=== PATIENT | male | born 1975 | race Caucasian/White ===

== ENCOUNTER 2016-04-21 19:27 | Inpatient (IN) | payer MEDICAID, OTHER ==
[~2016-04-21] VITALS: Ht 177.8 cm; Wt 86.9 kg
[~2016-04-21 19:27] MED LIST: IBUP800T23 PO; SULF1TAB47 PO
[2016-04-21] MEDS ORDERED: SODIUM CHLOR 0.9% 1000 ML INJ 1,000 ML IV SCH (19:32)
[2016-04-21 19:33] VITALS: BP 132/69; PULSE 89; RESP 24; TEMP 97.7; O2SAT 97
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
[2016-04-21 19:40] VITALS: PULSE 88; RESP 24; O2SAT 100
[2016-04-21 19:45] VITALS: BP 112/75; PULSE 84; RESP 28; O2SAT 100
[2016-04-21] MEDS ORDERED: MORPHINE SULFATE 8 MG/ML INJ IV PUSH ONE (19:45)
[2016-04-21] MEDS ORDERED: SODIUM CHLORIDE 0.9% FLUSH 5 ML FLUSH IVF PRN ×2 (19:45→20:30)
[2016-04-21] MEDS ORDERED: ONDANSETRON HCL 4 MG/2 ML VIAL IVP ONE (19:45)
[2016-04-21] MEDS ORDERED: SODIUM CHLOR 0.9% 250 ML INJ 250 ML IV ONE (20:00)
[2016-04-21 20:12] LABS: AUTOMATED NEUTROPHIL # 24.9 TH/MM3 (1.8-7.7); BASOPHIL % 0.1 % (0.0-2.0); EOSINOPHIL % 0.1 % (0.0-4.0); HEMATOCRIT 45.6 % (39.0-51.0); HEMO FLAGS DIFF FINAL; LYMPH % 4.2 % (9.0-44.0); LYMPHOCYTE # 1.2 TH/MM3 (1.0-4.8); MEAN CORPUSCULAR HEMOGLOBIN 31.2 PG (27.0-34.0); MEAN CORPUSCULAR HGB CONC 34.3 % (32.0-36.0); MONO % 4.6 % (0.0-8.0); PLATELET COUNT 192 TH/MM3 (150-450); RED BLOOD COUNT 5.02 MIL/MM3 (4.50-5.90); RED CELL DISTRIBUTION WIDTH 12.6 % (11.6-17.2); WHITE BLOOD COUNT 27.3 TH/MM3 (4.0-11.0)
[2016-04-21 20:22] VITALS: BP 121/85; PULSE 88; RESP 18; O2SAT 100
[2016-04-21 20:26] LABS: BLOOD, URINE MOD (NEG); COMMENT (UR) CULT NOT INDICATED; CULTURE IF INDICATED CULT NOT INDICATED; GLUCOSE,URINE NEG (NEG); KETONE, URINE TRACE mg/dL (NEG); MUCUS URINE FEW /lpf (OCC); NITRITE,URINE NEG (NEG); PH, URINE 5.5 (5.0-8.5); SQUAMOUS EPITHELIAL CELL URINE <1 /hpf (0-5); URINE COLOR YELLOW (YELLW/STRAW)
[2016-04-21] MEDS ORDERED: CHLORHEXIDINE GLUCONATE 2 % 1 PACK (2 CLOTHS) TOP PRN (20:30)
[2016-04-21] MEDS ORDERED: MORPHINE SULFATE 4 MG/ML INJ IV PUSH PRN (20:30)
[2016-04-21] MEDS ORDERED: ONDANSETRON HCL 4 MG/2 ML VIAL IV PRN (20:30)
[2016-04-21] MEDS ORDERED: ACETAMINOPHEN/HYDROcodone 325 MG/5 MG TAB PO PRN ×2 (20:30)
[2016-04-21] MEDS ORDERED: MISCELLANEOUS NURSING INFORMATION XX SCH (20:30)
[2016-04-21 20:39] LABS: APTT (PATIENT) 23.6 SEC (24.3-30.1); INTERNATIONAL NORMALIZED RATIO 1.1 RATIO; PROTHROMBIN TIME - PATIENT 11.7 SEC (9.8-11.6)
[2016-04-21 20:48] LABS: BICARBONATE 25.4 MEQ/L (21.0-32.0); TOTAL BILIRUBIN ADULT 1.3 MG/DL (0.2-1.0)
[2016-04-21 20:49] LABS: POTASSIUM 3.8 MEQ/L (3.5-5.1)
[2016-04-21 20:51] VITALS: BP 125/57; PULSE 86; RESP 16; O2SAT 100
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
[2016-04-21] MEDS: SODIUM CHLOR 0.9% 1000 ML INJ 1,000 ML IV SCH (21:50)
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
[2016-04-21] MEDS: PANTOPRAZOLE SODIUM 40 MG VIAL IVP SCH (22:03)
[2016-04-21 23:37] VITALS: O2SAT 96
[2016-04-21] MEDS: HYDROmorphone HCL PF 1 MG/ML VIAL IVP PRN (23:54)
[2016-04-22] VITALS (10 sets, daily range): BP systolic 103–126; BP diastolic 55–88; PULSE 82–97; RESP 12–22; TEMP 98.2–98.9; O2SAT 92–98
[2016-04-22] MEDS: MORPHINE SULFATE 4 MG/ML INJ IV PUSH PRN ×5 (01:44→18:56)
[2016-04-22 01:53] LABS: HEMATOCRIT 37.1 % (39.0-51.0); REVIEW FLAG FINAL
[2016-04-22] MEDS: HYDROmorphone HCL PF 1 MG/ML VIAL IVP PRN ×4 (03:39→21:31)
[2016-04-22] MEDS: SODIUM CHLOR 0.9% 1000 ML INJ 1,000 ML IV SCH ×4 (03:48→20:47)
[2016-04-22] MEDS: CHLORHEXIDINE GLUCONATE 2 % 1 PACK (2 CLOTHS) TOP SCH (03:50)
[2016-04-22] MEDS: PANTOPRAZOLE SODIUM 40 MG VIAL IVP SCH (07:44)
[2016-04-22 08:04] LABS: AUTOMATED NEUTROPHIL # 11.9 TH/MM3 (1.8-7.7); BASOPHIL % 0.1 % (0.0-2.0); EOSINOPHIL % 0.2 % (0.0-4.0); HEMATOCRIT 36.3 % (39.0-51.0); HEMO FLAGS DIFF FINAL; MEAN CELL VOLUME 90.6 FL (80.0-100.0); MEAN CORPUSCULAR HEMOGLOBIN 31.8 PG (27.0-34.0); MEAN CORPUSCULAR HGB CONC 35.1 % (32.0-36.0); MONO % 7.7 % (0.0-8.0); PLATELET COUNT 157 TH/MM3 (150-450); RED BLOOD COUNT 4.01 MIL/MM3 (4.50-5.90); RED CELL DISTRIBUTION WIDTH 12.6 % (11.6-17.2); WHITE BLOOD COUNT 14.1 TH/MM3 (4.0-11.0)
[2016-04-22 08:34] LABS: ALKALINE PHOSPHATASE 51 U/L (45-117); ALT (GPT) 13 U/L (12-78); ANION GAP 7 MEQ/L (5-15); AST (GOT) 27 U/L (15-37); BICARBONATE 23.8 MEQ/L (21.0-32.0); BLOOD UREA NITROGEN 19 MG/DL (7-18); CHLORIDE 112 MEQ/L (98-107); GLOMERULAR FILTRATION RATE 72 ML/MIN (>89); POTASSIUM 4.2 MEQ/L (3.5-5.1); SODIUM (NA) 143 MEQ/L (136-145); TOTAL BILIRUBIN ADULT 1.7 MG/DL (0.2-1.0)
[2016-04-22] MEDS ORDERED: IOHEXOL 350 MG/ML 10 ML VIAL (for RAD DIAG) IV ONE (11:05)
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
[2016-04-22 13:46] LABS: HEMATOCRIT 34.8 % (39.0-51.0); REVIEW FLAG FINAL
[2016-04-22] MEDS ORDERED: FAMOTIDINE 20 MG/2 ML VIAL ONE (14:12)
[2016-04-22] MEDS ORDERED: DEXAMETHASONE SOD PHOS 4 MG/ML VIAL ONE (14:12)
[2016-04-22] MEDS ORDERED: ACETAMINOPHEN 1000 MG/100 ML VIAL IV ONE (14:12)
[2016-04-22] MEDS ORDERED: SODIUM CHLORID 0.9% 500 ML INJ 500 ML IV ONE (15:24)
[2016-04-22] MEDS ORDERED: PROPOFOL 200 MG/20 ML AMP IV ONE (15:24)
[2016-04-22] MEDS ORDERED: ONDANSETRON HCL 4 MG/2 ML VIAL IV PUSH ONE (15:24)
[2016-04-22] MEDS ORDERED: NORMOSOL R INJ 1,000 ML IV ONE (15:24)
[2016-04-22] MEDS ORDERED: PHENYLEPH/NS 1000 MCG/10 ML SYR IV ONE (15:24)
[2016-04-22] MEDS ORDERED: LACTATED RINGER'S 1000 ML INJ 1,000 ML IV ONE (15:24)
[2016-04-22] MEDS ORDERED: HYDROmorphone HCL PF 2 MG/ML VIAL ONE (15:39)
[2016-04-22] MEDS ORDERED: fentaNYL CITRATE 250 MCG/5 ML AMP ONE (15:39)
[2016-04-22] MEDS ORDERED: MIDAZOLAM HCL 2 MG/2 ML VIAL ONE (16:26)
[2016-04-22] MEDS ORDERED: *morphine SULFATE 8 MG/ML PERIprocedure ONLY ONE ×2 (16:48→17:00)
[2016-04-22] MEDS ORDERED: DO NOT ADM ANY ANTICOAGULANT DRUGS XX PRN (17:45)
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
[2016-04-22] MEDS ORDERED: Post-op Orders (for Pharmacy) MISC XX ONE (19:00)
[2016-04-22] MEDS ORDERED: PANTOPRAZOLE SODIUM 40 MG VIAL IV SCH (19:00)
[2016-04-22] MEDS ORDERED: ONDANSETRON HCL 4 MG/2 ML VIAL IV PRN (19:00)
[2016-04-22] MEDS ORDERED: NALOXONE HCL 0.4 MG/ML AMP IV PRN (19:00)
[2016-04-22] MEDS: metroNIDAZOLE 500 MG INJ 100 ML IV SCH (20:46)
[2016-04-22] MEDS: DOCUSATE SODIUM 100 MG CAP PO SCH (20:46)
[2016-04-22] MEDS: SODIUM CHLORIDE 0.9% FLUSH 5 ML FLUSH IVF SCH (20:46)
[2016-04-22] MEDS: MAGNESIUM HYDROXIDE SUSP 30 ML CUP PO SCH (20:47)
[2016-04-22 22:47] LABS: HEMATOCRIT 32.8 % (39.0-51.0)
[2016-04-23] VITALS (14 sets, daily range): BP systolic 106–133; BP diastolic 52–68; PULSE 86–103; RESP 14–25; TEMP 98–99.1; O2SAT 94–98
[2016-04-23] MEDS: MORPHINE SULFATE 4 MG/ML INJ IV PUSH PRN ×4 (00:14→12:30)
[2016-04-23] MEDS: HYDROmorphone HCL PF 1 MG/ML VIAL IVP PRN ×6 (01:54→13:14)
[2016-04-23] MEDS: metroNIDAZOLE 500 MG INJ 100 ML IV SCH ×2 (04:58→12:31)
[2016-04-23 05:07] LABS: AUTOMATED NEUTROPHIL # 13.4 TH/MM3 (1.8-7.7); BASOPHIL % 0.1 % (0.0-2.0); EOSINOPHIL % 0.1 % (0.0-4.0); HEMO FLAGS DIFF FINAL; LYMPH % 6.5 % (9.0-44.0); MEAN CELL VOLUME 89.9 FL (80.0-100.0); MEAN CORPUSCULAR HGB CONC 35.6 % (32.0-36.0); MONO % 9.4 % (0.0-8.0); NEUT % 83.9 % (16.0-70.0); PLATELET COUNT 146 TH/MM3 (150-450); RED BLOOD COUNT 3.22 MIL/MM3 (4.50-5.90); RED CELL DISTRIBUTION WIDTH 12.7 % (11.6-17.2); WHITE BLOOD COUNT 15.9 TH/MM3 (4.0-11.0)
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
[2016-04-23 05:26] LABS: BICARBONATE 27.9 MEQ/L (21.0-32.0); CALCIUM-PROTEIN CORRECTED 8.2 MG/DL (8.5-10.1); TOTAL BILIRUBIN ADULT 0.8 MG/DL (0.2-1.0)
[2016-04-23] MEDS: SODIUM CHLOR 0.9% 1000 ML INJ 1,000 ML IV SCH ×3 (06:34→23:44)
[2016-04-23] MEDS: CHLORHEXIDINE GLUCONATE 2 % 1 PACK (2 CLOTHS) TOP SCH ×2 (06:34→23:52)
[2016-04-23] MEDS: DOCUSATE SODIUM 100 MG CAP PO SCH ×2 (08:26→21:00)
[2016-04-23] MEDS: SODIUM CHLORIDE 0.9% FLUSH 5 ML FLUSH IVF SCH ×2 (08:30→22:09)
[2016-04-23] MEDS: PANTOPRAZOLE SODIUM 40 MG VIAL IVP SCH (08:30)
[2016-04-23] MEDS ORDERED: INFLUENZA VIRUS VACCINE (QUADRIVALENT) 0.5 ML SYR IM ONE (10:00)
[2016-04-23] MEDS ORDERED: PNEUMOCOCCAL POLYVALENT INJ 25 MCG/0.5 ML SYR IM ONE (10:00)
[2016-04-23] MEDS: SODIUM CHLORIDE 0.9% FLUSH 5 ML FLUSH IVF PRN ×2 (11:16→13:14)
[2016-04-23] MEDS: PCA - TOTAL MG MORPHINE DELIVERED PER SHIFT SCH ×2 (14:00→22:09)
[2016-04-23] MEDS ORDERED: NALOXONE HCL 0.4 MG/ML AMP IV PRN (14:00)
[2016-04-23] MEDS: MORPHINE SULFATE 30 MG/30 ML PCA IV SCH ×2 (15:59→23:39)
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
[2016-04-23] MEDS: MAGNESIUM HYDROXIDE SUSP 30 ML CUP PO SCH (21:00)
[2016-04-24] VITALS: BP 125/66; PULSE 92; RESP 18; TEMP 99; O2SAT 95
[2016-04-24 04:00] VITALS: BP 125/68; PULSE 91; RESP 20; TEMP 98.6; O2SAT 97
[2016-04-24] MEDS: PCA - TOTAL MG MORPHINE DELIVERED PER SHIFT SCH ×3 (04:58→21:23)
[2016-04-24 05:53] LABS: AUTOMATED NEUTROPHIL # 13.7 TH/MM3 (1.8-7.7); BASOPHIL % 0.3 % (0.0-2.0); EOSINOPHIL # 0.2 TH/MM3 (0-0.4); EOSINOPHIL % 1.1 % (0.0-4.0); HEMATOCRIT 28.5 % (39.0-51.0); HEMO FLAGS DIFF FINAL; LYMPH % 7.5 % (9.0-44.0); LYMPHOCYTE # 1.3 TH/MM3 (1.0-4.8); MEAN CELL VOLUME 89.6 FL (80.0-100.0); MEAN CORPUSCULAR HEMOGLOBIN 32.1 PG (27.0-34.0); MEAN CORPUSCULAR HGB CONC 35.8 % (32.0-36.0); MONO % 11.6 % (0.0-8.0); NEUT % 79.5 % (16.0-70.0); PLATELET COUNT 198 TH/MM3 (150-450); RED BLOOD COUNT 3.18 MIL/MM3 (4.50-5.90); RED CELL DISTRIBUTION WIDTH 12.4 % (11.6-17.2); WHITE BLOOD COUNT 17.3 TH/MM3 (4.0-11.0)
[2016-04-24 06:13] LABS: ALKALINE PHOSPHATASE 59 U/L (45-117); ALT (GPT) 16 U/L (12-78); ANION GAP 9 MEQ/L (5-15); AST (GOT) 33 U/L (15-37); BICARBONATE 27.1 MEQ/L (21.0-32.0); BLOOD UREA NITROGEN 10 MG/DL (7-18); CHLORIDE 102 MEQ/L (98-107); GLOMERULAR FILTRATION RATE 99 ML/MIN (>89); MAGNESIUM 1.8 MG/DL (1.5-2.5); POTASSIUM 3.7 MEQ/L (3.5-5.1); SODIUM (NA) 138 MEQ/L (136-145); TOTAL BILIRUBIN ADULT 0.9 MG/DL (0.2-1.0)
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
[2016-04-24] MEDS: MORPHINE SULFATE 30 MG/30 ML PCA IV SCH ×3 (07:22→21:18)
[2016-04-24 08:00] VITALS: BP 112/65; PULSE 87; RESP 17; TEMP 98.3; O2SAT 97
[2016-04-24] MEDS: DOCUSATE SODIUM 100 MG CAP PO SCH ×2 (08:38→21:18)
[2016-04-24] MEDS: PANTOPRAZOLE SODIUM 40 MG VIAL IVP SCH (08:40)
[2016-04-24] MEDS: SODIUM CHLORIDE 0.9% FLUSH 5 ML FLUSH IVF SCH ×2 (08:40→21:00)
[2016-04-24 12:00] VITALS: BP 122/68; PULSE 94; RESP 13; TEMP 99.1; O2SAT 96
[2016-04-24] MEDS: diphenhydrAMINE HCL 50 MG/ML VIAL IV PUSH PRN (12:31)
[2016-04-24] MEDS: SODIUM CHLOR 0.9% 1000 ML INJ 1,000 ML IV SCH (12:38)
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
[2016-04-24] MEDS ORDERED: LACTULOSE SYRUP 20 GM/30 ML CUP PO ONE (14:00)
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
[2016-04-24] MEDS: METHOCARBAMOL 500 MG TAB PO SCH ×2 (15:17→21:18)
[2016-04-24 16:00] VITALS: BP 128/74; PULSE 93; RESP 20; TEMP 99.5; O2SAT 97
[2016-04-24 20:00] VITALS: BP 145/65; PULSE 104; RESP 18; TEMP 100.3; O2SAT 90
[2016-04-24] MEDS: CHLORHEXIDINE GLUCONATE 2 % 1 PACK (2 CLOTHS) TOP SCH (20:02)
[2016-04-24] MEDS: MAGNESIUM HYDROXIDE SUSP 30 ML CUP PO SCH (21:00)
[2016-04-24 21:14] LABS: MEAN CORPUSCULAR HGB CONC 36.9 % (32.0-36.0)
[2016-04-25] VITALS (7 sets, daily range): BP systolic 113–125; BP diastolic 57–73; PULSE 90–101; RESP 16–18; TEMP 95.3–98.8; O2SAT 92–98
[2016-04-25] MEDS: SODIUM CHLOR 0.9% 1000 ML INJ 1,000 ML IV SCH (02:25)
[2016-04-25 05:46] LABS: HEMATOCRIT 29.4 % (39.0-51.0); MEAN CELL VOLUME 89.1 FL (80.0-100.0); MEAN CORPUSCULAR HEMOGLOBIN 32.9 PG (27.0-34.0); PLATELET COUNT 324 TH/MM3 (150-450); RED CELL DISTRIBUTION WIDTH 11.9 % (11.6-17.2); WHITE BLOOD COUNT 14.6 TH/MM3 (4.0-11.0)
[2016-04-25 05:52] LABS: REVIEW FLAG FINAL
[2016-04-25] MEDS: PCA - TOTAL MG MORPHINE DELIVERED PER SHIFT SCH (06:00)
[2016-04-25] MEDS: METHOCARBAMOL 500 MG TAB PO SCH ×3 (06:00→22:12)
[2016-04-25 06:11] LABS: BICARBONATE 28.9 MEQ/L (21.0-32.0); POTASSIUM 3.4 MEQ/L (3.5-5.1)
[2016-04-25] MEDS: MORPHINE SULFATE 30 MG/30 ML PCA IV SCH (07:30)
[2016-04-25] MEDS: DOCUSATE SODIUM 100 MG CAP PO SCH ×2 (08:51→21:00)
[2016-04-25] MEDS: SODIUM CHLORIDE 0.9% FLUSH 5 ML FLUSH IVF SCH ×2 (08:51→21:00)
[2016-04-25] MEDS: PANTOPRAZOLE SODIUM 40 MG VIAL IVP SCH (08:51)
[2016-04-25] MEDS ORDERED: MAGNESIUM CITRATE SOLN 300 ML BTL PO ONE (09:15)
[2016-04-25] MEDS: oxyCODONE/ACETAMINOPHEN 7.5 MG/325 MG TAB PO PRN ×4 (11:17→23:21)
[2016-04-25] MEDS ORDERED: HAEMOPH B POLYSACCH CONJ VACCINE 0.5 ML VIAL IM ONE (12:30)
[2016-04-25] MEDS ORDERED: MENINGOCOCCAL CONJUGATE VACCINE 0.5 ML VIAL IM ONE (12:30)
[2016-04-25] MEDS ORDERED: PNEUMOCOCCAL POLYVALENT INJ 25 MCG/0.5 ML SYR IM ONE (12:30)
[2016-04-25] MEDS ORDERED: POTASSIUM CHLORIDE 20 MEQ CONTROLLED RELEASE TAB PO ONE (12:45)
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
[2016-04-25] MEDS: MAGNESIUM HYDROXIDE SUSP 30 ML CUP PO SCH (21:00)
[2016-04-25] MEDS: diphenhydrAMINE HCL 50 MG/ML VIAL IV PUSH PRN (23:21)
[2016-04-26] VITALS: BP 107/68; PULSE 98; RESP 16; TEMP 97.7; O2SAT 96
[2016-04-26] MEDS: CHLORHEXIDINE GLUCONATE 2 % 1 PACK (2 CLOTHS) TOP SCH (03:33)
[2016-04-26] MEDS: oxyCODONE/ACETAMINOPHEN 7.5 MG/325 MG TAB PO PRN ×3 (03:35→11:49)
[2016-04-26] MEDS: METHOCARBAMOL 500 MG TAB PO SCH (05:52)
[2016-04-26 08:00] VITALS: BP 108/69; PULSE 85; RESP 17; TEMP 96.7; O2SAT 95
[2016-04-26] MEDS: SODIUM CHLORIDE 0.9% FLUSH 5 ML FLUSH IVF SCH (09:00)
[2016-04-26] MEDS: DOCUSATE SODIUM 100 MG CAP PO SCH (09:00)
[2016-04-26] MEDS ORDERED: OXYC1TAB35 PO (10:58)
[2016-04-26 12:00] VITALS: BP 112/65; PULSE 92; RESP 17; TEMP 97.1; O2SAT 95
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
== END 2016-04-26 14:33 | disposition home or self-care (01) | DRG 800 ==
LOC: NEPC 19:27 → NEDA 19:53 → N03B 21:25 → N07A 04-23 23:32
PROVIDERS: ADMIT Surgery; ATTEND Surgery
PROC: 07TP0ZZ Resection of Spleen, Open Approach (ICD-10-PCS; principal; 2016-04-22 14:16)
DX: S36.032A Major laceration of spleen, initial encounter (principal); S22.32XA Fracture of one rib, left side, initial encounter for closed fracture; N17.9 Acute kidney failure, unspecified; F12.90 Cannabis use, unspecified, uncomplicated; R73.9 Hyperglycemia, unspecified; E86.9 Volume depletion, unspecified; Y93.89 Activity, other specified; Y92.838 Other recreation area as the place of occurrence of the external cause; V86.59XA Driver of other special all-terrain or other off-road motor vehicle injured in nontraffic accident, initial encounter; Z23 Encounter for immunization
CPT/HCPCS: 71010; 74177; 80048; 80053; 81001; 83690; 83735; 84100; 85014; 85018; 85025; 85027; 85610; 85730; 86850; 86900; 86901; 86920; 87641; 88305; 90732; 90734; 94150; C9113; J0131; J0690; J1100; J1170; J1200; J2250; J2270; J2370; J2405; J3010; J7030; J7040; J7120; Q9967

== ENCOUNTER 2016-11-04 08:23 | Emergency (ER) | payer MEDICAID, OTHER ==
[~2016-11-04] VITALS: Ht 175.3 cm; Wt 84.0 kg
[~2016-11-04 08:23] MED LIST changes: -IBUP800T23 PO; +OXYC1TAB35 PO; -SULF1TAB47 PO
[2016-11-04 08:24] VITALS: BP 155/81; PULSE 74; RESP 15; TEMP 98.2; O2SAT 98
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
[2016-11-04 08:46] VITALS: BP 138/87; PULSE 67; RESP 18; O2SAT 98
[2016-11-04] MEDS ORDERED: IOHEXOL 350 MG/ML 10 ML VIAL (for RAD DIAG) IVCONTRAST ONE (09:40)
--- NOTE | 2016-11-04 09:56 | RADRPT ---
EXAM DATE/TIME: 11/04/2016 09:29 [facility] COMPARISON: CT ABDOMEN & PELVIS W CONTRAST, April 22, 2016, 10:43. INDICATIONS : Left upper abdomen pain for two days; history of splenectomy. IV CONTRAST: 70 cc Omnipaque 350 (iohexol) IV ORAL CONTRAST: No oral contrast ingested. RADIATION DOSE: 8.21 CTDIvol (mGy) MEDICAL HISTORY : None SURGICAL HISTORY : Splenectomy. ENCOUNTER: Initial ACUITY: 2 days PAIN SCALE: 6/10 LOCATION: Left upper quadrant TECHNIQUE: Volumetric scanning of the abdomen and pelvis was performed. Using automated exposure control and ad justment of the mA and/or kV according to patient size, radiation dose was kept as low as reasonably achievable to obtain optimal diagnostic quality images. DICOM format image data is available electro nically for review and comparison. FINDINGS: LOWER LUNGS: The visualized lower lungs are clear. LIVER: Homogeneous density without lesion. There is no dilation of the biliary tree. No calcified gallston es. SPLEEN: Small splenial is evident. PANCREAS: Within normal limits. KIDNEYS: Right renal cyst is noted stable in the interval. ADRENAL GLANDS: Within normal limits. VASCULAR: There is no aortic aneurysm. BOWEL/MESENTERY: The stomach, small bowel, and colon demonstrate no acute abnormality. There is no free intraperitone al air or fluid. ABDOMINAL WALL: Within normal limits. RETROPERITONEUM: There is no lymphadenopathy. BLADDER: No wall thickening or mass. REPRODUCTIVE: Within normal limits. INGUINAL: There is no lymphadenopathy or hernia. MUSCULOSKELETAL: Within normal limits for patient age. CONCLUSION: Previous splenectomy with small splenule evident. I do not etiology for the patient's abdominal pain . Simba Justice MD FACR on November 04, 2016 at 9:52 Board Certified Radiologist. This report was verified electronically.
== END 2016-11-04 11:00 | disposition home or self-care (01) ==
LOC: NEPE 08:23
DX: R10.12 Left upper quadrant pain (principal); Z90.81 Acquired absence of spleen
CPT/HCPCS: 74177; 99285; Q9967